=== PATIENT | female | born 1965 | race Caucasian/White ===

== ENCOUNTER 2016-11-07 18:12 | Emergency (ER) | payer BC ==
[2016-11-07 18:17] VITALS: TEMP 97.9
[2016-11-07] MEDS ORDERED: HYDROCODONE/APAP 5/325 TAB PO ONE (18:31)
[2016-11-07] MEDS ORDERED: methylPREDNISolone SOD SUCC 125 MG/2 ML VIAL IVP ONE (18:53)
[2016-11-07] MEDS ORDERED: DIAZEPAM 10 MG/2 ML SYR IVP ONE (18:53)
[2016-11-07] MEDS ORDERED: KETOROLAC 30 MG/1 ML SDV IVP ONE (18:53)
--- NOTE | 2016-11-07 18:57 | EDPHY ---
H & P Time Seen by Provider: 11/07/16 18:26 HPI/ROS: CHIEF COMPLAINT: "Sciatica" HISTORY OF PRESENT ILLNESS: The patient is a 51-year-old female who presents emergency department with right back/hip/buttock pain. Her symptoms started on Wednesday. She initially had low back pain. This started to radiate into the right buttock and hip. Now radiates down her right leg. She has minimal right foot tingling. She denies any incontinence of urine or stool. No fevers or chills. No recent fall or trauma. REVIEW OF SYSTEMS: My complete review of systems is negative except as mentioned in the HPI. Past Medical/Surgical History: Includes previous sciatica on the left, L5-S1 diskectomy Social history: The patient does not smoke Smoking Status: Never smoked Physical Exam: Vitals noted GENERAL: moderate acute distress, alert. HEENT: Eyes normal to inspection, normal pharynx, no signs of dehydration. NECK: No thyromegaly, no lymphadenopathy, supple. RESPIRATORY: Clear to auscultation bilaterally, no rales, rhonchi or wheezing. CVS: Regular rate and rhythm, no rubs, murmurs, or gallops. ABDOMEN: Soft, nontender, nondistended, no organomegaly. BACK: Normal to inspection, no CVA tenderness. No spinal tenderness palpation. Positive leg raise on the right. SKIN: Normal color, no rash, warm, dry. No pallor. EXTREMITIES: No pedal edema, no calf tenderness, no Homans sign or cords, no joint swelling. NEURO/PSYCH: Alert and oriented x3, normal mood and affect, normal motor sensory exam. Constitutional: Initial Vital Signs Temperature (C) 36.6 C 11/07/16 18:13 Heart Rate 90 11/07/16 18:13 Respiratory Rate 18 11/07/16 18:13 Blood Pressure 149/75 H 11/07/16 18:13 O2 Sat (%) 96 11/07/16 18:13 O2 Delivery Mode Room Air Allergies/Adverse Reactions: codeine Allergy (Intermediate, Verified 11/07/16 18:17) Hives Penicillins Allergy (Intermediate, Verified 11/07/16 18:18) Hives Sulfa (Sulfonamide Antibiotics) Allergy (Intermediate, Verified 11/07/16 18:18) Hives Home Medications: Medication Instructions Recorded Diazepam [Valium] 5 mg PO Q6 #11 tab 11/07/16 Estrogen Patch 11/07/16 Hydrocodone/APAP 5/325 [[place] 1 - 2 tab PO Q4 #13 tab 11/07/16 5/325 (RX)] Progesterone,Micronized 50 mg PO 11/07/16 [Prometrium] predniSONE 20 mg PO DAILY 4 Days 11/07/16 Medical Decision Making ED Course/Re-evaluation: In the emergency department I discussed possible etiologies with the patient. I answered all her questions. The nurse had given the patient Percocet prior to my evaluation. IV was placed. The patient was given Toradol 30 mg IV, Solu- Medrol 125 mg IV, Valium 5 mg IV. 193: I rechecked the patient. She stated she was feeling much better. On repeat exam she had no neurologic deficit. Patient felt comfortable with discharge home. I answered all her questions. She is given warnings prior to leaving. Differential Diagnosis: My differential includes but is not limited to sciatica, disc herniation, epidural hematoma, epidural abscess, musculoskeletal strain - Data Points Medications Given: Discontinued Medications Hydrocodone Bitart/Acetaminophen ([place] 5/325) 2 tab PO EDNOW ONE Stop: 11/07/16 18:32 Last Admin: 11/07/16 18:35 Dose: 2 tab Diazepam (Valium Injection) 5 mg IVP EDNOW ONE Stop: 11/07/16 18:54 Last Admin: 11/07/16 19:16 Dose: 5 mg Ketorolac Tromethamine (Toradol) 30 mg IVP EDNOW ONE Stop: 11/07/16 18:54 Last Admin: 11/07/16 19:16 Dose: 30 mg Methylprednisolone Sodium Succinate (Solu-Medrol) 125 mg IVP EDNOW ONE Stop: 11/07/16 18:54 Last Admin: 11/07/16 19:16 Dose: 125 mg Departure - Departure Disposition: Home, Routine, Self-Care Clinical Impression: Sciatica Qualifiers: Laterality: right Qualified Code(s): M54.31 - Sciatica, right side Condition: Good Instructions: Sciatica (ED) Additional Instructions: Return with increasing pain, weakness, numbness, incontinence of urine or stool , fever or any other concerns. Referrals: Arsen Rush MD [Medical Doctor] - 5-7 days, call for appt. Prescriptions: Diazepam [Valium] 5 mg PO Q6 #11 tab Hydrocodone/APAP 5/325 [[place] 5/325 (RX)] 1 - 2 tab PO Q4 #13 tab predniSONE 20 mg PO DAILY 4 Days
[2016-11-07 19:58] VITALS: BP 116/61; PULSE 64; RESP 16; O2SAT 97
== END 2016-11-07 19:57 | disposition home or self-care (01) ==
DX: M54.31 Sciatica, right side (principal)
CPT/HCPCS: 96374; J1885

== ENCOUNTER 2016-12-27 17:32 | Emergency (ER) | payer BC ==
--- NOTE | 2016-12-27 18:43 | EDPHY ---
H & P Smoking Status: Never smoked Time Seen by Provider: 12/27/16 17:42 HPI/ROS: CHIEF COMPLAINT: right ankle pain HISTORY OF PRESENT ILLNESS: This otherwise healthy 51-year-old female, presents to the emergency department after an inversion ankle injury. The patient complains of pain to the lateral ankle and swelling. The patient has no other complaints, denies numbness or tingling to affected limb. (Shawna Thrasher) Physical Exam: General appearance: alert no distress Right ankle: There is mild swelling and tenderness over the lateral ankle. TTP to ATFL. Ankle joint is stable and there is no tenderness over the achilles tendon. The foot is non-tender without swelling. No TTP over 5th metatarsal. No proximal fibular tenderness Neurologic exam: The patient has normal sensation and motor function distal to the injury. Vascular exam: Normal pulses and capillary refill in the foot (Shawna Thrasher) Constitutional: Initial Vital Signs Temperature (C) 36.9 C 12/27/16 17:35 Heart Rate 67 12/27/16 17:35 Respiratory Rate 16 12/27/16 17:35 Blood Pressure 110/62 12/27/16 17:35 O2 Sat (%) 93 12/27/16 17:35 O2 Delivery Mode Room Air Allergies/Adverse Reactions: codeine Allergy (Intermediate, Verified 12/27/16 17:34) Hives Penicillins Allergy (Intermediate, Verified 12/27/16 17:34) Hives Sulfa (Sulfonamide Antibiotics) Allergy (Intermediate, Verified 12/27/16 17:34) Hives Home Medications: Medication Instructions Recorded Estrogen Patch 11/07/16 Progesterone,Micronized 50 mg PO 11/07/16 [Prometrium] MDM/Departure - [facility] Imaging: I viewed and interpreted images myself - [facility] ED Course/Re-evaluation: The patient wasevaluatedand managed by themcalevel provider. My co- signature indicates that [facility] reviewed this chart and I agree with the findings and plan of care asdocumented. I am the secondary supervising physician. (Shayna Hanley) - Depart Disposition: Home, Routine, Self-Care Clinical Impression: Right ankle sprain Qualifiers: Encounter type: initial encounter Involved ligament of ankle: unspecified ligament Qualified Code(s): S93.401A - Sprain of unspecified ligament of right ankle, initial encounter Condition: Good Instructions: Ankle Sprain (ED) Additional Instructions: Rest, ice, elevate, take 600 mg of ibuprofen every 8 hours as needed for pain. Wear ankle brace as needed. Follow up with your orthopedist as scheduled tomorrow. Referrals: ARMANDO STAHL [Retired Resigned] - As per Instructions
[2016-12-27 18:58] VITALS: BP 121/49; PULSE 65; RESP 15; TEMP 98.8; O2SAT 95
== END 2016-12-27 18:58 | disposition home or self-care (01) ==
DX: S93.401A Sprain of unspecified ligament of right ankle, initial encounter (principal); X58.XXXA Exposure to other specified factors, initial encounter
CPT/HCPCS: L4350

== ENCOUNTER 2017-10-21 08:08 | Emergency (ER) | payer BC, MEDICAID ==
--- NOTE | 2017-10-21 08:25 | CPEKG ---
Heart Rate: 92 RR Interval: 652 P-R Interval: 160 QRSD Interval: 78 QT Interval: 348 QTC Interval: 431 P [place]: 70 QRS [place]: 78 T Wave [place]: 33 EKG Severity - NORMAL ECG - EKG Impression: INCOMPLETE ANALYSIS DUE TO MISSING DATA IN PRECORDIAL LEAD(S) EKG Impression: SINUS RHYTHM Electronically Signed By: Mj Acosta 21-Oct-2017 15:33:16
[2017-10-21] MEDS ORDERED: NS 250 ML IV ONE (08:32)
--- NOTE | 2017-10-21 08:40 | EDPHY ---
H & P Time Seen by Provider: 10/21/17 08:27 HPI/ROS: HPI Shortness of breath. 52-year-old female by private vehicle. This patient recently returned from the [facility]. She reports that since returning she has had shortness of breath. She reports that this is worse with exertion as well as speaking. She reports having some intermittent chest discomfort which she describes as a tightness, mid sternum and left upper chest over the last 2 days as well. She is on progesterone and estrogen hormone therapy. She reports having a upper respiratory infection that lingered since September but she was feeling better prior to returning to the night and states. ROS: Constitutional: No fever, no chills. No weakness. Eyes: No discharge. No changes in vision. ENT: No sore throat. No nasal congestion or rhinorrhea. Respiratory: No cough. As above. Cardiac: As above, no palpitations. Gastrointestinal: No abdominal pain, no vomiting, no diarrhea. Genitourinary: No hematuria. No dysuria or increased frequency with urination. Musculoskeletal: No back pain. No neck pain. No myalgias or arthralgias. Skin: No rashes. Neurological: No headache. No focal weakness or altered sensation. Past medical history: Postmenopausal. Back surgery. As above. Social history: Nonsmoker. Here by herself. No alcohol. Physical Exam: General Appearance: Alert, no distress. This patient is responding to questions appropriately and in full sentences. This patient appears well- hydrated and well-nourished. Eyes: Pupils equal and round no pallor or injection. No lid edema, erythema or injection. Respiratory: There are no retractions, lungs are clear to auscultation with good air movement bilaterally. Cardiovascular: Regular rate and rhythm. No murmur. Gastrointestinal: Abdomen is soft and nontender, no masses, bowel sounds normal. No focal tenderness at McBurney's point. No Brenner sign. Neurological: Motor sensory function is grossly intact. Cranial nerves are normal. Gait is normal. Skin: Warm and dry, no rashes. Musculoskeletal: Neck is supple and nontender. Extremities are symmetrical. All joints range without pain or impingement. Psychiatric: No agitation. No depression. Database: EKG: EKG time is 8:22 a.m.; EKG shows a narrow complex normal sinus rhythm with a ventricular rate of 92 p.r. Depression noted in lead 2. . The NH, QRS, QT intervals are within normal limits. There are no ST-T wave changes indicative of ischemic or injury pattern. No evidence of right heart strain. Interpreted by me. Imaging: CTA of chest: No pulmonary embolism, mild bronchitis. Otherwise normal study. Reasons [place] with staff radiologist Dr. Kirill Santos. Bilateral lower extremity ultrasounds: No DVT. Results were discussed with staff radiologist Dr. Laurent Ferrer. Procedures: Emergency department course: Vital signs reviewed. She is borderline tachycardic with a heart rate of 96. Afebrile. Vital signs otherwise normal. Patient placed on a monitor. EKG obtained and reviewed by myself. IV placed. She consents for CT imaging to evaluate for pulmonary embolism. 10:05 a.m., patient re-evaluated. Resting comfortably at this time. Vital signs reviewed and are normal. I discussed the results of her CT angiogram of her emergency department workup. These results are reassuring. Her presentation is likely from a continued bronchitis. She feels comfortable going home and I feel she is safe for discharge. I will prescribe her an albuterol inhaler to use as needed for shortness of breath. She will follow up with a primary care physician for re-evaluation in the next 1-2 days. Return to emergency department precautions were thoroughly reviewed with her. All of her questions were answered. She was discharged in good condition. Differential Diagnosis: The differential diagnosis on this patient includes but is not limited to pulmonary embolism, pneumonitis, CHF, acute coronary since. This represents a partial list of diagnoses considered. These considerations are based on history , physical exam, past history, reassessment and diagnostic testing. Smoking Status: Never smoked Constitutional: Initial Vital Signs Temperature (C) 36.6 C 10/21/17 08:11 Heart Rate 96 10/21/17 08:11 Respiratory Rate 18 10/21/17 08:11 Blood Pressure 109/81 H 10/21/17 08:11 O2 Sat (%) 96 10/21/17 08:11 O2 Delivery Mode Room Air Allergies/Adverse Reactions: codeine Allergy (Intermediate, Verified 10/21/17 08:10) Hives Penicillins Allergy (Intermediate, Verified 10/21/17 08:10) Hives Sulfa (Sulfonamide Antibiotics) Allergy (Intermediate, Verified 10/21/17 08:10) Hives Home Medications: Medication Instructions Recorded Estrogen Patch 11/07/16 Progesterone,Micronized 50 mg PO 11/07/16 [Prometrium] Albuterol [Proventil Inhaler HFA 2 puffs IH Q2-4PRN PRN #1 mdi 10/21/17 (*)] Xanax 10/21/17 Medical Decision Making - Diagnostics Imaging Results: Imaging Impressions Chest/Thorax CTA 10/21/17 08:33 Impression: 1. No visible pulmonary embolus. 2. Minimal peribronchial thickening which could be related to airways disease/ bronchitis. 3. Additional findings as above. Findings discussed with Mj Acosta MD on 10/21/2017 at 9:49 a.m. Extremity Venous Study 10/21/17 08:33 Impression: No deep venous thrombosis bilateral legs. - Data Points Laboratory Results: Laboratory Results 10/21/17 08:25 10/21/17 08:25 10/21/17 10/21/17 10/21/17 08:25 08:25 08:25 WBC RBC Hgb Hct MCV MCH MCHC RDW Plt Count MPV Neut % (Auto) Lymph % (Auto) [place] % (Auto) Eos % (Auto) Baso % (Auto) Nucleat RBC Rel Count Absolute Neuts (auto) Absolute Lymphs (auto) Absolute Monos (auto) Absolute Eos (auto) Absolute Basos (auto) Absolute Nucleated RBC Immature Gran % Immature Gran # PT 13.4 SEC SEC (12.0-15.0) INR 1.00 (0.83-1.16) APTT 28.2 SEC SEC (23.0-38.0) Sodium 141 mEq/L mEq/L (135-145) Potassium 4.6 mEq/L mEq/L (3.5-5.2) Chloride 104 mEq/L mEq/L (97-110) Carbon Dioxide 24 mEq/l mEq/l (22-31) Anion Gap 13 mEq/L mEq/L (8-16) BUN 13 mg/dL mg/dL (7-23) Creatinine 0.6 mg/dL mg/dL (0.6-1.0) Estimated GFR > 60 Glucose 85 mg/dL mg/dL (70-100) Calcium 9.9 mg/dL mg/dL (8.5-10.4) Troponin I < 0.012 ng/mL ng/mL (0.000-0.034) NT-Pro-B Natriuret Pep 25 pg/mL pg/mL (0-125) Beta HCG, Qual NEGATIVE 10/21/17 08:25 WBC 9.69 10^3/uL H 10^3/uL (3.80-9.50) RBC 5.22 10^6/uL 10^6/uL (4.18-5.33) Hgb 15.5 g/dL g/dL (12.6-16.3) Hct 44.5 % % (38.0-47.0) MCV 85.2 fL fL (81.5-99.8) MCH 29.7 pg pg (27.9-34.1) MCHC 34.8 g/dL g/dL (32.4-36.7) RDW 13.6 % % (11.5-15.2) Plt Count 297 10^3/uL 10^3/uL (150-400) MPV 9.0 fL fL (8.7-11.7) Neut % (Auto) 71.5 % % (39.3-74.2) Lymph % (Auto) 18.9 % % (15.0-45.0) [place] % (Auto) 7.6 % % (4.5-13.0) Eos % (Auto) 0.7 % % (0.6-7.6) Baso % (Auto) 0.9 % % (0.3-1.7) Nucleat RBC Rel Count 0.0 % % (0.0-0.2) Absolute Neuts (auto) 6.92 10^3/uL H 10^3/uL (1.70-6.50) Absolute Lymphs (auto) 1.83 10^3/uL 10^3/uL (1.00-3.00) Absolute Monos (auto) 0.74 10^3/uL 10^3/uL (0.30-0.80) Absolute Eos (auto) 0.07 10^3/uL 10^3/uL (0.03-0.40) Absolute Basos (auto) 0.09 10^3/uL 10^3/uL (0.02-0.10) Absolute Nucleated RBC 0.00 10^3/uL 10^3/uL (0-0.01) Immature Gran % 0.4 % % (0.0-1.1) Immature Gran # 0.04 10^3/uL 10^3/uL (0.00-0.10) PT INR APTT Sodium Potassium Chloride Carbon Dioxide Anion Gap BUN Creatinine Estimated GFR Glucose Calcium Troponin I NT-Pro-B Natriuret Pep Beta HCG, Qual Medications Given: Discontinued Medications Sodium Chloride (Ns) 250 mls @ 1,000 mls/hr IV EDNOW ONE PRN Reason: Protocol Stop: 10/21/17 08:46 Last Admin: 10/21/17 08:36 Dose: 250 mls Departure - Departure Disposition: Home, Routine, Self-Care Clinical Impression: Dyspnea, Bronchitis Condition: Good Instructions: Acute Bronchitis (ED) Additional Instructions: Read and follow provided instructions. Follow-up with your primary care physician in 1-2 days for re-evaluation. Albuterol meter dose inhaler: 1-2 puffs every 2-4 hours as needed for cough and shortness of breath. Return to the emergency department for worsening symptoms, worsening shortness of breath, chest pain, fever, worsening cough or other serious concerns. Referrals: Craolee Downing MD [Medical Doctor] - As per Instructions Bella Granda MD [[facility] Primary Care Provider] - As per Instructions Prescriptions: Albuterol [Proventil Inhaler HFA (*)] 2 puffs IH Q2-4PRN PRN #1 mdi PRN Reason: Sob/Dyspnea
[2017-10-21 08:41] LABS: PLATELET COUNT 297 10^3/uL (150-400)
[2017-10-21] MEDS ORDERED: IOPAMIDOL (ISOVUE-300) 100 ML BTL ONE (09:08)
[2017-10-21 09:09] LABS: PROTIME(PATIENT) 13.4 SEC (12.0-15.0)
[2017-10-21] MEDS ORDERED: IOPAMIDOL (ISOVUE 370) 100 ML BTL IV ONE (09:09)
[2017-10-21 10:22] VITALS: BP 109/65
== END 2017-10-21 10:50 | disposition home or self-care (01) ==
DX: J40 Bronchitis, not specified as acute or chronic (principal); E86.9 Volume depletion, unspecified
CPT/HCPCS: Q9967

== ENCOUNTER 2017-11-18 00:01 | Emergency (ER) | payer MEDICAID ==
[2017-11-18] MEDS ORDERED: CETIRIZINE 10 MG TAB PO ONE (00:36)
--- NOTE | 2017-11-18 01:19 | EDPHY ---
H & P Stated Complaint: SOB WITH HX OF SAME SINCE OCTOBER BUT NOW WITH HIVES TONIGHT Time Seen by Provider: 11/18/17 00:31 HPI/ROS: Chief Complaint: Cough, hives HPI: 52-year-old woman was diagnosed with bronchitis last month. Patient states she has been using the albuterol inhaler about twice a day. She feels her symptoms are not getting much better. Does have a dry nonproductive cough. Today she noticed a couple hives on her legs. She says he has a paradoxical reaction to Benadryl. Denies any throat swelling or closing or the sensation that she can't move air. No fevers or chills. No nausea or vomiting. ROS: 10 point Review of Systems is negative except as noted in the HPI. PMH: Bronchitis Social History: No smoking, no alcohol, no recreational drug use Family History: non-contributory Physical Exam: Gen: Awake, Alert, No Distress HEENT: Nose: no rhinorrhea Eyes: PERRLA, EOMI Mouth: Moist mucosa Neck: Supple, no JVD Chest: nontender, lungs clear to auscultation, excellent air movement Heart: S1, S2 normal, no murmur Abd: Soft, non-tender, no guarding Back: no CVA tenderness, no midline tenderness Ext: no edema, non-tender Skin: 3-4 small hives on her left arm, leg, and abdomen, they are blanching, there pruritic Neuro: CN II-XII intact, Sensation grossly intact, Strength 5/5 in bilateral upper and lower extremities - Personal History LMP (Females 10-55): Post Menopausal Current Tetanus/Diphtheria Vaccine: Yes Current Tetanus Diphtheria and Acellular Pertussis (TDAP): Yes - Medical/Surgical History Hx Asthma: No Hx Chronic Respiratory Disease: No Hx Diabetes: No Hx Cardiac Disease: No Hx Renal Disease: No Hx Cirrhosis: No Hx Alcoholism: No Hx HIV/AIDS: No Hx Splenectomy or Spleen Trauma: No Other PMH: back surg - Social History Smoking Status: Never smoked Constitutional: Initial Vital Signs Temperature (C) 36.6 C 11/18/17 00:10 Heart Rate 76 11/18/17 00:10 Respiratory Rate 18 11/18/17 00:10 Blood Pressure 108/66 11/18/17 00:10 O2 Sat (%) 94 11/18/17 00:10 O2 Delivery Mode Room Air Allergies/Adverse Reactions: codeine Allergy (Intermediate, Verified 11/18/17 00:12) Hives Penicillins Allergy (Intermediate, Verified 11/18/17 00:12) Hives Sulfa (Sulfonamide Antibiotics) Allergy (Intermediate, Verified 11/18/17 00:12) Hives Home Medications: Medication Instructions Recorded Estrogen Patch 11/07/16 Progesterone,Micronized 50 mg PO 11/07/16 [Prometrium] Albuterol [Proventil Inhaler HFA 2 puffs IH Q2-4PRN PRN #1 mdi 10/21/17 (*)] Xanax 10/21/17 Medical Decision Making ED Course/Re-evaluation: 52-year-old woman complaining of persistent since the bronchitis. Her lungs are very clear and she is moving excellent air with good oxygen saturations. She is complaining some small hives. I have given her oral Zyrtec which she has tolerated in the past. Will continue to observe. Patient is feeling improved. She has an appoint with primary care physician tomorrow. She will return for any concerns. - Data Points Medications Given: Discontinued Medications Cetirizine HCl (Zyrtec) 10 mg PO EDNOW ONE Stop: 11/18/17 00:37 Last Admin: 11/18/17 00:50 Dose: 10 mg Departure - Departure Disposition: Home, Routine, Self-Care Clinical Impression: Urticaria Condition: Good Instructions: Urticaria (ED) Additional Instructions: Follow up with primary care physician tomorrow as scheduled. Return to the emergency department for worsening shortness of breath, worsening rash, itching, fevers, chills, or any other concerns. Referrals: NONE *PRIMARY CARE P,. [Primary Care Provider] - As per Instructions
[2017-11-18 01:38] VITALS: BP 110/65
== END 2017-11-18 01:36 | disposition home or self-care (01) ==
DX: L50.9 Urticaria, unspecified (principal)

== ENCOUNTER → 2017-11-24 | Outpatient (CLI) | payer MEDICAID | LOC: FIMAGING 13:22 | PROVIDERS: ATTEND Internal Medicine | DX: J98.4 Other disorders of lung (principal) ==